=== PATIENT | male | born 1975 | race Caucasian/White ===

== ENCOUNTER 2021-12-24 00:14 | Observation (INO) ==
[2021-12-24] MEDS ORDERED: methylPREDNISolone 125 MG/2 ML VIAL IVP ONE (00:47)
[2021-12-24] MEDS ORDERED: Ipratropium/Albuterol Neb 3 ML IH ONE (00:47)
[2021-12-24 01:20] LABS: Basophils % 0.3 %; Eosinophils # 0.1 K/mcL (0.0-0.6); Eosinophils % 1.3 %; Hematocrit 43.9 % (37.5-50.1); Immature Granulocytes % 0.2 % (0-4); Lymphocytes # 1.6 K/mcL (0.6-4.6); Lymphocytes % 17.9 %; Mean Corpuscular HGB Conc 31.9 g/dL (31.6-35.5); Mean Corpuscular Hemoglobin 27.9 pg (28.0-33.3); Mean Corpuscular Volume 87.6 fL (83.0-100.0); Mean Platelet Volume 11.9 fL (9.4-12.4); Monocytes # 1.1 K/mcL (0.0-1.3); Monocytes % 11.9 %; Neutrophils # 6.3 K/mcL (1.6-8.9); Platelet Count 137 K/mcL (140-400); Red Blood Count 5.01 M/mcL (4.19-5.50); Red Cell Distribution Width 17.6 % (11.5-14.5); Segmented Neutrophils % 68.4 %; White Blood Count 9.2 K/mcL (4.3-11.1)
[2021-12-24 01:29] LABS: Prothrombin Time 11.4 Seconds (9.4-12.1)
[2021-12-24 01:34] LABS: ABG Base Excess 7 mEq/L (-2 to 3); ABG HCO3 39 mEq/L (21-27); ABG Oxygen Saturation 90 % (95-98); ABG PCO2 88 mmHg (35-45); ABG PH 7.25 pH Units (7.32-7.45); ABG PO2 73 mmHg (85-104); ABG TCO2 41 mEq/L (20-26)
[2021-12-24 01:40] LABS: Troponin I < 0.03 ng/mL (< 0.04)
[2021-12-24 01:51] LABS: BUN/Creatinine Ratio 19 (6-26); Blood Urea Nitrogen 15 mg/dL (6-20); Carbon Dioxide 42 mEq/L (23-29); Chloride 90 mEq/L (98-107); Glucose 103 mg/dL (70-105); Osmolality,Calculated 279 (280-300); Potassium 4.5 mEq/L (3.5-5.1); Sodium 134 mEq/L (136-145)
[2021-12-24 03:28] LABS: ABG Base Excess 8 mEq/L (-2 to 3); ABG HCO3 37 mEq/L (21-27); ABG Oxygen Saturation 82 % (95-98); ABG PCO2 77 mmHg (35-45); ABG PH 7.29 pH Units (7.32-7.45); ABG PO2 54 mmHg (85-104); ABG TCO2 40 mEq/L (20-26); Blood Gas Pressure Support 8 cm H2O
[2021-12-24] MEDS ORDERED: Ondansetron 4 MG/2 ML VIAL IVP PRN (04:19)
[2021-12-24] MEDS ORDERED: Acetaminophen 325 MG TABLET PO PRN (04:19)
[2021-12-24] MEDS ORDERED: Melatonin 3 MG TABLET PO PRN (04:19)
[2021-12-24] MEDS ORDERED: Naloxone 0.4 MG/ML INJ IVP PRN (04:19)
[2021-12-24] MEDS ORDERED: *HR* Dextrose 50 % in Water (Syg) 50 ML SYRINGE IVP PRN (06:44)
[2021-12-24] MEDS ORDERED: Dextrose Gel 15 GM/37.5 ML TUBE PO PRN ×2 (06:44)
[2021-12-24] MEDS ORDERED: D5% in Water 1,000 ML IVC PRN (06:44)
[2021-12-24 06:52] LABS: Basophils % 0.1 %; Eosinophils % 0.1 %; Hematocrit 45.5 % (37.5-50.1); Hemoglobin 14.5 g/dL (12.9-16.9); Immature Granulocytes % 0.8 % (0-4); Lymphocytes # 0.6 K/mcL (0.6-4.6); Lymphocytes % 7.4 %; Mean Corpuscular HGB Conc 31.9 g/dL (31.6-35.5); Mean Corpuscular Hemoglobin 27.6 pg (28.0-33.3); Mean Corpuscular Volume 86.5 fL (83.0-100.0); Mean Platelet Volume 10.8 fL (9.4-12.4); Monocytes # 0.1 K/mcL (0.0-1.3); Monocytes % 1.6 %; Neutrophils # 6.8 K/mcL (1.6-8.9); Platelet Count 131 K/mcL (140-400); Red Blood Count 5.26 M/mcL (4.19-5.50); Red Cell Distribution Width 17.7 % (11.5-14.5); White Blood Count 7.6 K/mcL (4.3-11.1)
[2021-12-24 07:00] LABS: Prothrombin Time 11.1 Seconds (9.4-12.1)
[2021-12-24] MEDS ORDERED: Azithromycin 500 MG in 0.9 % Sodium Chloride 250 ML IVPB SCH (07:00)
[2021-12-24 07:03] LABS: Activated Partial Thrombo Time 31.7 Seconds (26.0-36.0)
[2021-12-24 07:14] LABS: Alanine Aminotransferase 16 Units/L (7-52); Albumin 3.8 g/dL (3.5-5.7); Albumin/Globulin Ratio 1.1 (1.1-2.2); Alkaline Phosphatase 74 Units/L (34-104); Aspartate Amino Transferase 17 Units/L (13-39); BUN/Creatinine Ratio 21 (6-26); Bilirubin,Total 0.2 mg/dL (0.3-1.0); Blood Urea Nitrogen 13 mg/dL (6-20); Calcium 9.3 mg/dL (8.6-10.3); Carbon Dioxide 37 mEq/L (23-29); Chloride 93 mEq/L (98-107); Globulin 3.5 g/dL (2.4-3.5); Glucose 176 mg/dL (70-105); Magnesium 1.6 mg/dL (1.6-2.6); Osmolality,Calculated 284 (280-300); Phosphorous 2.7 mg/dL (2.7-4.5); Potassium 4.7 mEq/L (3.5-5.1); Sodium 135 mEq/L (136-145); Total Protein 7.3 g/dL (6.4-8.9)
[2021-12-24] MEDS ORDERED: MethylPREDNISolone 40 MG/ML VIAL IVP SCH (08:00)
[2021-12-24] MEDS ORDERED: Ipratropium/Albuterol Neb 3 ML IH SCH (08:00)
[2021-12-24] MEDS: Budesonide/Formoterol 160/4.5 1 PUFF INH IH SCH ×2 (08:02→19:31)
[2021-12-24] MEDS ORDERED: predniSONE 20 MG TABLET PO SCH (09:00)
[2021-12-24] MEDS ORDERED: Furosemide 20 MG/2 ML VIAL IVP ONE (10:25)
[2021-12-24] MEDS ORDERED: Ipratropium/Albuterol Neb 3 ML IH PRN (10:35)
[2021-12-24 10:47] LABS: ABG Base Excess 7 mEq/L (-2 to 3); ABG HCO3 35 mEq/L (21-27); ABG Oxygen Saturation 86 % (95-98); ABG PCO2 64 mmHg (35-45); ABG PH 7.35 pH Units (7.32-7.45); ABG PO2 55 mmHg (85-104); ABG TCO2 37 mEq/L (20-26)
[2021-12-24] MEDS: Insulin LISPRO 300 UNITS/3 ML VIAL SUBQ SCH ×3 (11:21→17:25)
[2021-12-24] MEDS: Chlorhexidine Rinse 15 ML MOUTHWASH MM SCH ×2 (11:23→21:18)
[2021-12-24] MEDS: Gabapentin 400 MG CAPSULE PO SCH ×3 (13:20→21:17)
[2021-12-24] MEDS ORDERED: Haloperidol Lactate 5 MG/ML VIAL IVP PRN (15:26)
[2021-12-24] MEDS ORDERED: QUEtiapine Fumarate 100 MG TABLET PO SCH (21:00)
[2021-12-24] MEDS: carvediloL 6.25 MG TABLET PO SCH (21:17)
[2021-12-24] MEDS: risperiDONE 1 MG TABLET PO SCH (21:17)
[2021-12-24] MEDS: QUEtiapine Fumarate 100 MG TABLET PO SCH (21:17)
[2021-12-25] MEDS ORDERED: *HR* Enoxaparin 40 MG/0.4 ML SYRINGE SQ SCH (06:00)
[2021-12-25] MEDS ORDERED: lisinopriL 20 MG TABLET PO SCH (09:00)
[2021-12-25] MEDS ORDERED: Furosemide 40 MG TABLET PO SCH (09:00)
[2021-12-25] MEDS ORDERED: Venlafaxine XR (24 HR) 150 MG CAP.ER.24H PO SCH (09:00)
[2021-12-25] MEDS: Insulin LISPRO 300 UNITS/3 ML VIAL SUBQ SCH ×2 (09:05→11:42)
[2021-12-25] MEDS: risperiDONE 1 MG TABLET PO SCH (09:28)
[2021-12-25] MEDS: Chlorhexidine Rinse 15 ML MOUTHWASH MM SCH (09:28)
[2021-12-25] MEDS: carvediloL 6.25 MG TABLET PO SCH (09:29)
[2021-12-25] MEDS: Gabapentin 400 MG CAPSULE PO SCH ×2 (09:29→14:33)
[2021-12-25] MEDS: QUEtiapine Fumarate 100 MG TABLET PO SCH (09:30)
[2021-12-25] MEDS: Budesonide/Formoterol 160/4.5 1 PUFF INH IH SCH (10:18)
[2021-12-25 10:38] LABS: Basophils % 0.3 %; Eosinophils % 0.1 %; Hematocrit 44.1 % (37.5-50.1); Immature Granulocytes % 0.3 % (0-4); Lymphocytes # 2.1 K/mcL (0.6-4.6); Lymphocytes % 19.3 %; Mean Corpuscular HGB Conc 31.7 g/dL (31.6-35.5); Mean Corpuscular Hemoglobin 27.7 pg (28.0-33.3); Mean Corpuscular Volume 87.3 fL (83.0-100.0); Mean Platelet Volume 11.5 fL (9.4-12.4); Monocytes % 9.2 %; Neutrophils # 7.7 K/mcL (1.6-8.9); Platelet Count 159 K/mcL (140-400); Red Blood Count 5.05 M/mcL (4.19-5.50); Segmented Neutrophils % 70.8 %; White Blood Count 10.8 K/mcL (4.3-11.1)
[2021-12-25 10:47] VITALS: O2SAT 91
[2021-12-25 11:07] LABS: BUN/Creatinine Ratio 16 (6-26); Blood Urea Nitrogen 11 mg/dL (6-20); Calcium 9.4 mg/dL (8.6-10.3); Carbon Dioxide 40 mEq/L (23-29); Chloride 93 mEq/L (98-107); Glucose 143 mg/dL (70-105); Osmolality,Calculated 288 (280-300); Sodium 138 mEq/L (136-145)
[2021-12-25] MEDS ORDERED: QUEtiapine Fumarate 100 MG TABLET PO SCH (13:00)
[2021-12-25 14:54] VITALS: BP 138/86; PULSE 82; RESP 18; TEMP 98.6
== END 2021-12-25 15:35 | disposition other institution (70) ==
LOC: EMEROOPIK 00:14 → INPPIK 00:14 → SUATTDRO 04:15 → MERGE 04:15 → INPPIK 04:19
PROVIDERS: ADMIT Internal Medicine; ATTEND Internal Medicine

== ENCOUNTER 2022-01-31 09:25 | Observation (INO) ==
[2022-01-31] MEDS ORDERED: methylPREDNISolone 125 MG/2 ML VIAL IVP ONE (09:30)
[2022-01-31] MEDS ORDERED: Albuterol 2.5 MG/3 ML NEBULIZER IH ONE (09:30)
[2022-01-31] MEDS ORDERED: Azithromycin 500 MG in 0.9 % Sodium Chloride 250 ML IVPB ONE (09:30)
[2022-01-31] MEDS ORDERED: cefTRIAXone 2,000 MG in 0.9 % Sodium Chloride 10 ML IVP ONE (09:30)
[2022-01-31 09:51] LABS: ABG Base Excess 9 mEq/L (-2 to 3); ABG HCO3 39 mEq/L (21-27); ABG Oxygen Saturation 81 % (95-98); ABG PCO2 80 mmHg (35-45); ABG PO2 54 mmHg (85-104); ABG TCO2 41 mEq/L (20-26)
[2022-01-31 10:04] LABS: Basophils % 0.2 %; Eosinophils % 0.3 %; Hematocrit 43.6 % (37.5-50.1); Hemoglobin 13.7 g/dL (12.9-16.9); Immature Granulocytes % 0.2 % (0-4); Lymphocytes # 1.2 K/mcL (0.6-4.6); Lymphocytes % 12.3 %; Mean Corpuscular HGB Conc 31.4 g/dL (31.6-35.5); Mean Corpuscular Hemoglobin 28.6 pg (28.0-33.3); Mean Platelet Volume 10.9 fL (9.4-12.4); Monocytes # 0.8 K/mcL (0.0-1.3); Monocytes % 8.4 %; Neutrophils # 7.6 K/mcL (1.6-8.9); Platelet Count 128 K/mcL (140-400); Red Blood Count 4.79 M/mcL (4.19-5.50); Red Cell Distribution Width 17.8 % (11.5-14.5); Segmented Neutrophils % 78.6 %; White Blood Count 9.6 K/mcL (4.3-11.1)
[2022-01-31 10:15] LABS: Troponin I < 0.03 ng/mL (< 0.04)
[2022-01-31 10:23] LABS: Alanine Aminotransferase 14 Units/L (7-52); Albumin 3.6 g/dL (3.5-5.7); Albumin/Globulin Ratio 1.1 (1.1-2.2); Alkaline Phosphatase 60 Units/L (34-104); Aspartate Amino Transferase 13 Units/L (13-39); BUN/Creatinine Ratio 21 (6-26); Bilirubin,Indirect 0.3 mg/dL (0.0-1.0); Bilirubin,Total 0.3 mg/dL (0.3-1.0); Blood Urea Nitrogen 15 mg/dL (6-20); Calcium 8.4 mg/dL (8.6-10.3); Carbon Dioxide 40 mEq/L (23-29); Chloride 92 mEq/L (98-107); Globulin 3.4 g/dL (2.4-3.5); Glucose 134 mg/dL (70-105); Osmolality,Calculated 283 (280-300); Potassium 4.6 mEq/L (3.5-5.1); Sodium 135 mEq/L (136-145)
[2022-01-31] MEDS ORDERED: Albuterol 2.5 MG/3 ML NEBULIZER IH PRN (10:50)
[2022-01-31] MEDS ORDERED: Naloxone 0.4 MG/ML INJ IVP PRN (10:51)
[2022-01-31] MEDS ORDERED: Acetaminophen 325 MG TABLET PO PRN (10:51)
[2022-01-31] MEDS: Albuterol 2.5 MG/3 ML NEBULIZER IH SCH ×2 (11:09→14:55)
[2022-01-31 11:13] LABS: Anisocytosis 1+ (Not Present); Microcytosis Present (Not Present); Platelet Estimate Slight Decrease (Normal)
[2022-01-31] MEDS ORDERED: D5% in Water 1,000 ML IVC PRN (11:46)
[2022-01-31] MEDS ORDERED: *HR* Dextrose 50 % in Water (Syg) 50 ML SYRINGE IVP PRN (11:46)
[2022-01-31] MEDS ORDERED: Dextrose Gel 15 GM/37.5 ML TUBE PO PRN ×2 (11:46)
[2022-01-31] MEDS ORDERED: Gabapentin 400 MG CAPSULE PO SCH (13:00)
[2022-01-31 13:14] LABS: ABG Base Excess 10 mEq/L (-2 to 3); ABG HCO3 42 mEq/L (21-27); ABG Oxygen Saturation 92 % (95-98); ABG PCO2 91 mmHg (35-45); ABG PH 7.27 pH Units (7.32-7.45); ABG PO2 76 mmHg (85-104); ABG TCO2 45 mEq/L (20-26); Blood Gas Pressure Support 8 cm H2O
[2022-01-31 14:57] VITALS: O2SAT 95
[2022-01-31 15:06] VITALS: BP 164/82; PULSE 92; RESP 18; TEMP 98.4
[2022-01-31 15:13] LABS: ABG Base Excess 9 mEq/L (-2 to 3); ABG HCO3 41 mEq/L (21-27); ABG Oxygen Saturation 95 % (95-98); ABG PCO2 89 mmHg (35-45); ABG PH 7.27 pH Units (7.32-7.45); ABG PO2 93 mmHg (85-104); ABG TCO2 44 mEq/L (20-26); Blood Gas Pressure Support 8 cm H2O
[2022-01-31] MEDS ORDERED: Insulin LISPRO 300 UNITS/3 ML VIAL SUBQ SCH ×2 (16:30→21:00)
[2022-01-31] MEDS ORDERED: *HR* Heparin 5,000 UNIT/ML VIAL SQ SCH (18:00)
[2022-01-31] MEDS ORDERED: carvediloL 6.25 MG TABLET PO SCH (20:00)
[2022-01-31] MEDS ORDERED: Melatonin 3 MG TABLET PO SCH (20:00)
[2022-01-31] MEDS ORDERED: risperiDONE 1 MG TABLET PO SCH (21:00)
[2022-01-31] MEDS ORDERED: QUEtiapine Fumarate 100 MG TABLET PO SCH (21:00)
[2022-02-01] MEDS ORDERED: Folic Acid 1 MG TABLET PO SCH (08:00)
[2022-02-01] MEDS ORDERED: lisinopriL 20 MG TABLET PO SCH (08:00)
[2022-02-01] MEDS ORDERED: Ascorbic Acid 500 MG TABLET PO SCH (08:00)
[2022-02-01] MEDS ORDERED: Furosemide 40 MG TABLET PO SCH (08:00)
[2022-02-01] MEDS ORDERED: Thiamine (B-1) 100 MG TABLET PO SCH (08:00)
[2022-02-01] MEDS ORDERED: Iron Polysaccharide Complex 150 MG CAPSULE PO SCH (08:00)
[2022-02-01] MEDS ORDERED: Loratadine 10 MG TABLET PO SCH (08:00)
[2022-02-01] MEDS ORDERED: Fluticasone Propionate Nasal 50 MCG/SPRAY BOTTLE NS SCH (08:00)
[2022-02-01] MEDS ORDERED: Cyanocobalamin (B-12) 1,000 MCG TABLET PO SCH (08:00)
[2022-02-01] MEDS ORDERED: Venlafaxine XR (24 HR) 150 MG CAP.ER.24H PO SCH (09:00)
[2022-02-01] MEDS ORDERED: predniSONE 20 MG TABLET PO SCH (09:00)
[2022-02-01] MEDS ORDERED: clonazePAM 0.5 MG TABLET PO SCH (09:00)
[2022-02-01] MEDS ORDERED: Aspirin 81 MG TAB.CHEW PO SCH (09:00)
[2022-02-01] MEDS ORDERED: Azithromycin 250 MG TABLET PO SCH (09:00)
[2022-02-03] MEDS ORDERED: Ergocalciferol (VIT D2) 50,000 UNIT (1.25MG) CAP PO SCH (08:00)
== END 2022-01-31 17:20 | disposition home or self-care (01) ==
LOC: EMEROOPIK 09:25 → INPPIK 09:25
PROVIDERS: ADMIT Internal Medicine; ATTEND Internal Medicine